=== PATIENT | female | born 1990 ===

== ENCOUNTER 2017-05-31 12:34 | Emergency (ER) | payer OTHER ==
[2017-05-31 12:35] VITALS: BMI 25.4
[2017-05-31 13:03] VITALS: BP 117/71; PULSE 109; RESP 18; TEMP 98.7; O2SAT 98
--- NOTE | 2017-05-31 15:02 | ED PDOC ---
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 She states the burning sensation lasts for 10 minutes and occurs about every 30 minutes. She states the headache isnt the worst she has ever had and denies any sudden onset or thunderclap sensation. She denies any nausea, vomiting, weakness. No other complaint. Past Medical History Reviewed: Historical Data, Nursing Documentation, Vital Signs Vital Signs: Last Vital Signs Temp 98.7 F 05/31/17 12:57 Pulse 109 H 05/31/17 12:57 Resp 18 05/31/17 12:57 BP 117/71 05/31/17 12:57 Pulse Ox 98 05/31/17 17:25 - Medical History PMH: No Chronic Diseases Denies: Depression, Diabetes, HTN - Surgical History Surgical History: No Surg Hx - Family History Family History: States: Unknown Family Hx, Diabetes - Home Medications Home Medications: Ambulatory Orders Medication Instructions Recorded Vit Calc,Iron,Folic 1 each PO DAILY #30 tablet 06/08/16 [ Vitamins] Docusate [Colace] 100 mg PO BID #30 cap 12/19/16 Ibuprofen [Motrin Tab] 600 mg PO Q6 PRN #30 tab 12/19/16 - Allergies Allergies/Adverse Reactions: Allergies Allergy/AdvReac Type Severity Reaction Status Date / Time No Known Allergies Allergy Verified 12/16/16 21:59 Review of Systems ROS Statement: Except As Marked, All Systems Reviewed And Found Negative Cardiovascular: Positive for: Other (burning sesnation to breasts) Neurological: Positive for: Headache. Negative for: Weakness Physical Exam - Reviewed Nursing Documentation Reviewed: Yes Vital Signs Reviewed: Yes - Physical Exam Appears: Positive for: Non-toxic, No Acute Distress Head Exam: Positive for: ATRAUMATIC Skin: Positive for: Normal Color Eye Exam: Positive for: Normal appearance Neck: Positive for: Supple Respiratory: Negative for: Respiratory Distress Neurologic/Psych: Positive for: Alert, Oriented. Negative for: Motor/Sensory Deficits - ECG O2 Sat by Pulse Oximetry: 98 (RA) Pulse Ox Interpretation: Normal Medical Decision Making Medical Decision Making: Impression: Headache Plan: -- CT Head w/o contrast -- ED Upreg Time: 1720 CT Head FINDINGS: HEMORRHAGE: No intracranial hemorrhage. BRAIN: No mass effect or edema. No atrophy or chronic microvascular ischemic changes. VENTRICLES: Unremarkable. No hydrocephalus. CALVARIUM: Unremarkable. PARANASAL SINUSES: Unremarkable as visualized. No significant inflammatory changes. MASTOID AIR CELLS: Unremarkable as visualized. No inflammatory changes. OTHER FINDINGS: None. IMPRESSION: No acute intracranial abnormalities. No significant findings to account for the clinical presentation. No significant interval change compared to the prior examination(s). Scribe Attestation: Documented by Adri Tejeda acting as a scribe for ROSHAN Pena Provider Attestation: All medical record entries made by the Scribe were at my direction and personally dictated by me. I have reviewed the chart and agree that the record accurately reflects my personal performance of the history, physical exam, medical decision making, and the department course for this patient. I have also personally directed, reviewed, and agree with the discharge instructions and disposition. Disposition - Clinical Impression Clinical Impression: Headache - Patient ED Disposition Is Patient to be Admitted: No Counseled Patient/Family Regarding: Diagnosis, Need For Followup - Disposition Disposition: Routine/Home Disposition Time: 17:52 Condition: GOOD Instructions: Acute Headache (ED) Forms: [employer] (Korean) Print Language: MALTESE
--- NOTE | 2017-05-31 17:09 | CT ---
PROCEDURE: CT HEAD WITHOUT CONTRAST. HISTORY: headache, intermittent COMPARISON: 10.24.14 TECHNIQUE: Axial computed tomography images were obtained through the head/brain without intravenous contrast. Radiation dose: Total exam DLP = 761.20 MGy-cm. This CT exam was performed using one or more of the following dose reduction techniques: Automated exposure control, adjustment of the mA and/or kV according to patient size, and/or use of iterative reconstruction technique. FINDINGS: HEMORRHAGE: No intracranial hemorrhage. BRAIN: No mass effect or edema. No atrophy or chronic microvascular ischemic changes. VENTRICLES: Unremarkable. No hydrocephalus. CALVARIUM: Unremarkable. PARANASAL SINUSES: Unremarkable as visualized. No significant inflammatory changes. MASTOID AIR CELLS: Unremarkable as visualized. No inflammatory changes. OTHER FINDINGS: None. IMPRESSION: No acute intracranial abnormalities. No significant findings to account for the clinical presentation. No significant interval change compared to the prior examination(s).
== END 2017-05-31 18:09 | disposition home or self-care (01) ==
LOC: H.ER 12:34
DX: R51 Headache (principal); R30.0 Dysuria